=== PATIENT | male | born 1995 | race American Indian/Alaskan Native ===

== ENCOUNTER 2019-06-01 11:46 | Emergency (ER) | payer OTHER ==
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
[2019-06-01 11:51] VITALS: BP 126/84
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
[2019-06-01] MEDS ORDERED: IBUPROFEN PO ONE (12:41)
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
[2019-06-01] MEDS ORDERED: ULTRAM PO ONE (13:06)
--- NOTE | 2019-06-01 13:58 | XRay Report ---
Right wrist 4 views INDICATION: Pain, tenderness to palpation and anatomical snuffbox. COMPARISON: None. IMPRESSION: No acute osseous or soft tissue abnormality. No significant DJD. Signer Name: Robi Celestin Jr, MD Signed: 06/01/2019 1:53 PM Workstation Name: [id number]
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
== END 2019-06-01 14:55 | disposition home or self-care (01) ==
LOC: ED 11:46
DX: S16.1XXA Strain of muscle, fascia and tendon at neck level, initial encounter (principal); M54.5 Low back pain; M25.531 Pain in right wrist; G40.909 Epilepsy, unspecified, not intractable, without status epilepticus; Z79.899 Other long term (current) drug therapy; Z88.0 Allergy status to penicillin; V49.49XA Driver injured in collision with other motor vehicles in traffic accident, initial encounter; Y93.89 Activity, other specified; Y92.410 Unspecified street and highway as the place of occurrence of the external cause; Y99.8 Other external cause status
CPT/HCPCS: 72040; 72100